=== PATIENT | female | born 1995 | race Caucasian/White ===

== ENCOUNTER 2021-04-07 18:13 | Emergency (ER) | payer OTHER ==
[~2021-04-07] VITALS: Ht 167.6 cm; Wt 75.2 kg
[2021-04-07 18:15] VITALS: BP 140/77
--- NOTE | 2021-04-07 18:35 | PHYS DOC ---
Past Medical History Additional Past Medical Histor: cerebral palsy Past Surgical History: Other Additional Past Surgical Histo: achilles tendon repair, right knee surgery General Adult EDM: Chief Complaint: FINGER INJURY HPI: HPI: Patient is a 25-year-old female who presents to the emergency department for right fifth finger pain, swelling and bruising that occurred after she slipped on a wet floor and fell onto her finger yesterday. Patient denies any pain at rest but reports pain is 3 out of 10 with movement. She denies any decreased range of motion or decreased sensation in her extremity. Review of Systems: Review of Systems: Constitutional: negative unless reported in HPI Eyes: negative unless reported in HPI HENT: negative unless reported in HPI Respiratory: negative unless reported in HPI Cardiovascular: negative unless reported in HPI GI: negative unless reported in HPI : negative unless reported in HPI Musculoskeletal: negative unless reported in HPI Integument: negative unless reported in HPI Neurologic: negative unless reported in HPI Endocrine: negative unless reported in HPI Lymphatic: negative unless reported in HPI Psychiatric: negative unless reported in HPI Heart Score: C/O Chest Pain: N/A Risk Factors: Risk Factors: DM, Current or recent (<one month) smoker, HTN, HLP, family history of CAD, obesity. Risk Scores: Score 0 - 3: 2.5% MACE over next 6 weeks - Discharge Home Score 4 - 6: 20.3% MACE over next 6 weeks - Admit for Clinical Observation Score 7 - 10: 72.7% MACE over next 6 weeks - Early Invasive Strategies Allergies: Allergies: Allergies Coded Allergies Type Severity Reaction Last Updated Verified No Known Drug Allergies 04/07/21 No Physical Exam: PE: Constitutional: Well developed, well nourished, no acute distress, non-toxic appearance. [] HENT: Normocephalic, atraumatic, bilateral external ears normal, oropharynx moist, no oral exudates, nose normal. [] Eyes: PERRL, EOMI, conjunctiva normal, no discharge. [] Neck: Normal range of motion, no stridor Cardiovascular: Normal peripheral perfusion Lungs & Thorax: Normal work of breathing, no tachypnea Abdomen: Soft and flat Skin: Warm, dry, no erythema, no rash. [] Back: Normal range of motion Extremities: No tenderness, no cyanosis, no clubbing, ROM intact, no edema. [] Right fifth finger: Swelling and ecchymosis noted, range of motion intact, neuro intact Neurologic: Alert and oriented X 3, normal motor function, normal sensory funct ion, no focal deficits noted. [] Psychologic: Affect normal, judgement normal, mood normal. [] Current Patient Data: Vital Signs: Vital Signs Date Time Temp Pulse Resp B/P (MAP) Pulse Ox O2 Delivery O2 Flow Rate FiO2 04/07/21 18:15 98.6 100 18 140/77 (98) 99 Room Air 98.6 EKG: EKG: [] Radiology/Procedures: Radiology/Procedures: [] Course & Med Decision Making: Course & Med Decision Making Pertinent Labs and Imaging studies reviewed. (See chart for details) [] Patient presents to the emergency department for right fifth finger pain, swelling and bruising after slipping on wet floor and falling onto it yesterday. An x-ray was performed that showed no acute fracture read by this [employer] and supervising physician. Finger placed in aluminum finger splint for comfort. Advised to take Tylenol ibuprofen for pain also apply ice and use elevation for swelling. I discussed with patient all findings and diagnostic testing as well as the need to follow-up with PCP for further evaluation and treatment or return to the ER if any new or worsening symptoms. Strict return precautions were also discussed at length. Patient voiced understanding and agreement with the plan. Patient is hemodynamically stable at the time of disposition. Sin Disclaimer: Sin Disclaimer: This electronic medical record was generated, in whole or in part, using a voice recognition dictation system. Departure Departure Impression: Primary Impression: Finger sprain Qualified Codes: S63.616A - Unspecified sprain of right little finger, initial encounter Disposition: HOME / SELF CARE / HOMELESS Condition: GOOD Patient Instructions: Finger Sprain Additional Instructions: You are seen in the emergency department for a right pinky finger injury. X-ray was performed in the emergency department that showed no acute fracture. Your finger was placed in an aluminum finger splint for support. Wear this for comfort as needed. Please take Tylenol and ibuprofen for any pain. Please apply ice and elevate to help with swelling. Follow-up with your primary care provider if your pain or symptoms continue in a week. Return to the emergency department if you develop new injury or have decreased range of motion or decreased sensation in your finger. FREDERICK GRIJALVA CLINICAL FIELD SPECIALIST Apr 07, 2021 18:35
--- NOTE | 2021-04-07 19:53 | RAD ---
Study: XR FINGER(S)_RIGHT 2+VIEWS Indication: Finger injury. Comparison: None. Findings: Mild cortical undulation at the volar aspect of the little finger middle phalanx at its base. Articul ar surfaces are congruent. Edematous soft tissues surrounding the little finger PIP joint. The rest o f the partially assessed hand is unremarkable. Impression: Possible subtle nondisplaced fracture at the volar aspect of the little finger middle phalanx adjacen t to the PIP joint (see ramires image). The surrounding soft tissues are edematous. No traumatic malalign ment. Follow-up radiographs could be obtained in 2-3 weeks to help confirm. Electronically signed by: FERNANDO HUI MD (04/07/2021 7:51 PM) TiffanieJOSÉ
== END 2021-04-07 19:48 | disposition home or self-care (01) ==
LOC: ER 18:13
DX: S63.616A Unspecified sprain of right little finger, initial encounter (principal); W01.0XXA Fall on same level from slipping, tripping and stumbling without subsequent striking against object, initial encounter; Y93.89 Activity, other specified; Y92.89 Other specified places as the place of occurrence of the external cause; Y99.8 Other external cause status
CPT/HCPCS: 29130; 73140; 99283

== ENCOUNTER 2021-04-10 18:07 | Emergency (ER) | payer OTHER ==
[~2021-04-10] VITALS: Ht 167.6 cm; Wt 72.7 kg
[2021-04-10 18:11] VITALS: BP 130/77
--- NOTE | 2021-04-10 18:45 | PHYS DOC ---
Past Medical History Additional Past Medical Histor: cerebral palsy Past Surgical History: Other Additional Past Surgical Histo: achilles tendon repair, right knee surgery Smoking Status: Never Smoker Alcohol Use: None General Adult EDM: Chief Complaint: FINGER INJURY HPI: HPI: Patient is a 25 year old F who presents with right finger pain. She injured her right pinky finger 3 days ago, and presented to [place] [facility]. Imaging showed no acute fracture. Splint was placed and she was discharged. She presents today with concerns regarding the splint, and wants to know how long she needs to wear it. She is not able to perform her normal duties at work with the splint and had to call out today - she would like a note for work. Her pain is well-controlled with ibuprofen and tylenol, 2/10 dull ache. Pain does not radiate. Denies numbness/tingling. She reports no other symptoms at this time. Review of Systems: Review of Systems: Review of systems: Constitutional symptoms- No fever, no chills. Eyes- No Discharge, No Visual Loss Respiratory symptoms- No shortness of breath, No wheezing, No Dyspnea on Exertion Cardiovascular Systems; No chest pain, No Palpitations, No syncope Gastrointestinal symptoms: NO abdominal pain, no nausea, no vomiting or diarrhea. Genitourinary symptoms: No dysuria. Musculoskeletal symptoms: No back pain R upper extremity pain in fifth digit. NEUROLOGICAL Symptoms: No headache, no generalized weakness; No focal Weakness Skin: No rash. Heart Score: C/O Chest Pain: N/A Risk Factors: Risk Factors: DM, Current or recent (<one month) smoker, HTN, HLP, family history of CAD, obesity. Risk Scores: Score 0 - 3: 2.5% MACE over next 6 weeks - Discharge Home Score 4 - 6: 20.3% MACE over next 6 weeks - Admit for Clinical Observation Score 7 - 10: 72.7% MACE over next 6 weeks - Early Invasive Strategies Allergies: Allergies: Allergies Coded Allergies Type Severity Reaction Last Updated Verified No Known Drug Allergies 04/10/21 No Physical Exam: PE: General: alert, no acute distress. Skin: warm, dry and intact, no erythema, no rash. HENT: bilateral external ears normal, oropharynx moist, nose normal. Head:: Normocephalic, atraumatic. Neck: Trachea midline. Eyes: EOMI, Normal conjunctiva, No drainage CARDIOVASCULAR: Regular rate and rhythm RESPIRATORY: No respiratory distress Back: Full range of motion. MUSCULOSKELETAL: Middle and distal phalanx limited in extension/flexion of fifth digit of R upper extremity. Full range of motion in all other digits, L upper extremity and lower extremities GASTROINTESTINAL: Abdomen soft without rebound or guarding. NEUROLOGICAL: Alert and noted to person, place and time. No neurological deficits observed Psychiatric: Cooperative. Normal judgment Current Patient Data: Vital Signs: Vital Signs Date Time Temp Pulse Resp B/P (MAP) Pulse Ox O2 Delivery O2 Flow Rate FiO2 04/10/21 18:11 98.2 97 16 130/77 (94) 98 Room Air 98.2 EKG: EKG: [] Radiology/Procedures: Radiology/Procedures: [] Course & Med Decision Making: Course & Med Decision Making Pertinent Labs and Imaging studies reviewed. (See chart for details) [] Dragon Disclaimer: Dragon Disclaimer: This electronic medical record was generated, in whole or in part, using a voice recognition dictation system. Departure Departure Impression: Primary Impression: Finger sprain Disposition: HOME / SELF CARE / HOMELESS Condition: STABLE Referrals: NO PCP (PCP) JAMISON HAZEL MD Patient Instructions: Finger Sprain Additional Instructions: Work excuse provided. Referred to [facility]. SRIKANTH CORTEZ DO Apr 10, 2021 18:45
== END 2021-04-10 18:44 | disposition home or self-care (01) ==
LOC: ER 18:07
DX: S63.616A Unspecified sprain of right little finger, initial encounter (principal); W01.0XXA Fall on same level from slipping, tripping and stumbling without subsequent striking against object, initial encounter; Y93.89 Activity, other specified; Y92.89 Other specified places as the place of occurrence of the external cause; Y99.8 Other external cause status
CPT/HCPCS: 29125; 99283

== ENCOUNTER → 2021-04-28 | Outpatient (CLI) | payer OTHER ==
[2021-04-10 18:11] VITALS: BP 130/77
--- NOTE | 2021-04-28 10:57 | KCIC ---
XR FINGER(S)_RIGHT 2+VIEWS Clinical indications: Reason: Pt fell 3 weeks ago. Deformity to 5th digit. / Spl. Instructions: / Hi story: Findings: No acute fracture or dislocation or osteolytic process is evident. The fifth proximal phal anx is not completely seen in the lateral view. If there is clinical concern for this area including the fifth metacarpal phalangeal joint area, then repeat dedicated lateral view of this area could be performed if clinically needed. IMPRESSION: No acute osseous abnormality is evident. Electronically signed by: Bryan Worthington MD (04/28/2021 10:55 AM) [id number]
== END ==
LOC: KCIC 10:06
PROVIDERS: ATTEND Nurse Practitioner Family
DX: S69.90XA Unspecified injury of unspecified wrist, hand and finger(s), initial encounter (principal); W19.XXXA Unspecified fall, initial encounter; Y93.89 Activity, other specified; Y92.89 Other specified places as the place of occurrence of the external cause
CPT/HCPCS: 73140